=== PATIENT | male | born 1990 | race African-American/Black ===

== ENCOUNTER 2023-07-01 21:59 | Emergency (ER) | payer OTHER ==
[~2023-07-01] VITALS: Ht 167.6 cm; Wt 68.0 kg
[2023-07-01] MEDS ORDERED: LOSARTAN POTASS25 MG PO (22:13)
[2023-07-01] MEDS ORDERED: HYDROCHLOROTHIA25 MG PO (22:13)
[2023-07-02] MEDS ORDERED: DOLOGESIC-DF 51 EACH PO (03:39)
[2023-07-02] MEDS ORDERED: PEPCID40 MG PO (03:39)
== END 2023-07-02 03:47 ==
LOC: ER 21:59
PROVIDERS: General Practice
DX: J06.9 Acute upper respiratory infection, unspecified (principal); I10 Essential (primary) hypertension; Z20.822 Contact with and (suspected) exposure to COVID-19